=== PATIENT | male | born 1955 | race African-American/Black ===

== ENCOUNTER → 2019-11-11 | Outpatient (CLI) | payer MEDICAID ==
[~2019-11-11] MED LIST: ASPI-1497 PO; FLOV11 INH; METO25TA6 PO
== END | disposition home or self-care (01) ==
LOC: LAB 06:44
PROVIDERS: ATTEND Ophthalmology
DX: Z01.818 Encounter for other preprocedural examination (principal); Z11.59 Encounter for screening for other viral diseases
CPT/HCPCS: U0003-CS

== ENCOUNTER 2019-11-15 09:36 | Day surgery (SDC) | payer MEDICAID ==
[~2019-11-15] VITALS: Ht 182.9 cm; Wt 113.4 kg
[~2019-11-15 09:36] MED LIST changes: +BALANCED SALT IRRIG SOLN COMB1 500ML OP ONE
[2019-11-15] MEDS ORDERED: CYCLOPENTOLATE HCL 1% OPHTH DROPS 2ML RIGHTEYE ONE (10:20)
[2019-11-15] MEDS ORDERED: LACTATED RINGERS 1,000 ML IV SCH (10:20)
[2019-11-15] MEDS ORDERED: PHENYLEPHRINE HCL 10% OPHTH DROPS 5ML RIGHTEYE ONE (10:20)
[2019-11-15] MEDS ORDERED: LIDOCAINE HCL 2%/EPINEPHRINE 1:100,000 20 ML VIAL INFIL ONE (11:15)
[2019-11-15] MEDS ORDERED: CIPROFLOXACIN 0.3% OPHTH SOLN 2.5ML ONE (11:15)
[2019-11-15] MEDS ORDERED: LIDOCAINE HCL/PF 2% 20 MG/ML 10ML VIAL ONE (11:15)
[2019-11-15] MEDS ORDERED: TETRACAINE 0.5% OPHTH DROPS 4ML ONE (11:15)
[2019-11-15] MEDS ORDERED: BUPIVACAINE HCL/PF 0.75% (7.5MG/ML) 10ML ONE (11:15)
[2019-11-15] MEDS ORDERED: BALANCED SALT IRRIG SOLN 15ML ONE (11:15)
[2019-11-15] MEDS ORDERED: TROPICAMIDE 1% OPHTH DROPS 15ML RIGHTEYE ONE (11:15)
[2019-11-15] MEDS ORDERED: ACETYLCHOLINE CHLORIDE INTRAOCULAR SOLUTION 1:100 ELECTROLYTE DILUENT IO ONE (11:15)
[2019-11-15] MEDS ORDERED: PREDNISOLONE ACETATE 1% OPHTH DROPS 5ML ONE (11:15)
[2019-11-15] MEDS ORDERED: HYALURONATE SODIUM 10 MG/ML 0.55ML SYRINGE IO ONE (11:26)
[2019-11-15] MEDS ORDERED: FENTANYL CITRATE/PF 50MCG/ML 2ML VIAL ONE (11:53)
[2019-11-15] MEDS ORDERED: MIDAZOLAM HCL 2 MG/2 ML VIAL ONE (11:53)
[2019-11-15] MEDS ORDERED: PROPOFOL 200MG/20ML VIAL IV ONE (11:55)
== END 2019-11-15 14:05 | disposition home or self-care (01) ==
LOC: OR 09:36
PROVIDERS: ATTEND Ophthalmology
DX: H25.89 Other age-related cataract (principal); I10 Essential (primary) hypertension; Z79.899 Other long term (current) drug therapy; Z98.890 Other specified postprocedural states; Z79.82 Long term (current) use of aspirin; Z98.2 Presence of cerebrospinal fluid drainage device
CPT/HCPCS: 66984; 67005; J2250; J2704; J3010; J3490; V2630; V2632